=== PATIENT | female | born 1985 | race Native Hawaiian/Other Pacific Islander ===

== ENCOUNTER 2021-10-29 03:05 | Inpatient (IN) | payer OTHER ==
[~2021-10-29] VITALS: Ht 162.6 cm; Wt 47.6 kg
--- NOTE | ~2021-10-29 | EMS ---
[address] [address] EMS Patient Care Report Name: LAKEISHA PONCE Room #: 204-P ADM IN M.R.#: [id number] Admission: 10/29/21 Attend Phys: Suman Leigh MD Discharge: Date of : 85 Report #: [id number] THIS REPORT FOR: //name// Report Transmitted: 10/29/2021 07:53 EMS Care Summary [facility] MED-ACT Incident [id number] @ 10/29/2021 02:32 Incident Location [facility] [place] [address] Patient LAKEISHA PONCE Female, 36 Years 1985 Patient Address [address] [place] [address] Patient History Depression,Alcohol Abuse, Patient Medications Other, Pantoprazole, Hydroxyzine, Celexa, Amitriptyline, Chief Complaint Pt. took two days worth of her meds. Disposition Transported No Lights/[place] Dispatch Reason Overdose/Poisoning/Ingestion Transported To [facility] Narrative Arrived to find a 36 yr old female patient laying in the entry way of a sober living house on an ECG in the care of E31. According to the warehouse operator, she believes the patient took two days worth of her anti-depressants and consumed an unknown amount of alcohol. Possibly in her car before coming inside. [employer] stated they could smell alcohol on her breath. The senior manager quality assurance states the patient [facility] [address] [place] [address] EMS Patient Care Report Name: LAKEISHA PONCE Room #: 204-P ADM IN M.R.#: [id number] Admission: 10/29/21 Attend Phys: Suman Leigh MD Discharge: Date of : 85 Report #: [id number] has been going through an ugly divorce. It is unknown if anything happened tonight. She reports the patient has only been back at the "sober living house" for the past two weeks. Previously she was kicked out about six months ago because of drinking. Around that time was also the last time the patient overdosed. Patient denies any complaints and admits to drinking an unknown amount of vodka tonight. The warehouse operator states the patient's med are locked up and she only had access to two days worth. A: See assessment tab. Physical exam, vital signs, and patient placed on an ECG prior to our arrival. Patient was rolled onto the soft cot and carried out to the cot. Due to the presence of snow on the ground. Patient woke up once she was exposed to the cold air outside. Moved to ambulance. En route to [place]. Vital signs and ECG were monitored during transport. Patient's mental status improved. IV established. We contacted [place] on the med radio. Patient rested on the cot during transport. Patient had no additional changes to her condition during transport and was alert with stable vital signs upon arrival at [place]. Patient care was transferred to an ED RN in room 4 at [place]. Patient was able to self transfer from the cot to the hospital bed. Patient requested ambulance transport to [place]. Patient tested positive for COVID-19, 12 days ago. 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 [address] [place] [address] EMS Patient Care Report Name: LAKEISHA PONCE Room #: 204-P ADM IN M.R.#: [id number] Admission: 10/29/21 Attend Phys: Suman Leigh MD Discharge: Date of : 85 Report #: [id number] 02:30,Call Received 02:30,Psap Call 02:32,Dispatched 02:34,En Route 02:41,On Scene 02:45,At Patient 02:48,Surgical Mask on Patient,Response: Unchanged 02:53,BP: 110/73 M,PULSE: 95,RR: 16 R,SPO2: 99 Ox,ETCO2: ,BG: ,PAIN: 0,GCS: 14, 02:57,Depart Scene 02:58,IV Therapy - Saline Lock 10cc 18 ga Site: Forearm-Left,Response: UnchangedSucceeded, 03:01,BP: 99/65 M,PULSE: 94,RR: 16 R,SPO2: 96 Ox,ETCO2: ,BG: ,PAIN: 0,GCS: 14, 03:02,At Destination 03:27,Call Closed Disclaimer v1.1 Copyright 2021 [employer] This EMS Care Summary contains data elements from the applicable legal record (which may be displayed differently). It is designed to provide pertinent information for the following purposes: continuity of care, clinical quality, and state data reporting. The complete legal record is available to ED staff and administrators of the receiving hospital in [employer]'s Patient Tracker. All data is provided "as is."
--- NOTE | ~2021-10-29 | EMS ---
[facility] [address] [place] [address] EMS Patient Care Report Name: LAKEISHA PONCE Room #: REG MARIE Kessler#: [id number] Admission: 10/29/21 Attend Phys: Discharge: Date of : 85 Report #: [id number] THIS REPORT FOR: //name// Report Transmitted: 10/29/2021 03:37 EMS Care [facility] MED-ACT Incident [id number] @ 10/29/2021 02:32 Incident Location [facility] [place] [address] Patient LAKEISHA PONCE Female, 36 Years 1985 Patient Address [address] [place] [address] Patient History Depression,Alcohol Abuse, Patient Medications Other, Pantoprazole, Hydroxyzine, Celexa, Amitriptyline, Chief Complaint Pt. took two days worth of her meds. Disposition Transported No Lights/[place] Dispatch Reason Overdose/Poisoning/Ingestion Transported To [facility] Narrative Arrived to find a 36 yr old female patient laying in the entry way of a sober living house on an ECG in the care of E31. According to the house mother, she believes the patient took two days worth of her anti-depressants and consumed an unknown amount of alcohol. Possibly in her car before coming inside. [employer] stated they could smell alcohol on her breath. The manager activities states the patient [address] [address] EMS Patient Care Report Name: LAKEISHA PONCE Room #: REG [place]#: [id number] Admission: 10/29/21 Attend Phys: Discharge: Date of : 85 Report #: [id number] has been going through an ugly divorce. It is unknown if anything happened tonight. She reports the patient has only been back at the "sober living house" for the past two weeks. Previously she was kicked out about six months ago because of drinking. Around that time was also the last time the patient overdosed. Patient denies any complaints and admits to drinking an unknown amount of vodka tonight. The house mother states the patient's med are locked up and she only had access to two days worth. A: See assessment tab. Physical exam, vital signs, and patient placed on an ECG prior to our arrival. Patient was rolled onto the soft cot and carried out to the cot. Due to the presence of snow on the ground. Patient woke up once she was exposed to the cold air outside. Moved to ambulance. En route to [place]. Vital signs and ECG were monitored during transport. Patient's mental status improved. IV established. We contacted [place] on the med radio. Patient rested on the cot during transport. Patient had no additional changes to her condition during transport and was alert with stable vital signs upon arrival at [place]. Patient care was transferred to an ED RN in room 4 at [place]. Patient was able to self [facility] bed. Patient requested ambulance transport to [place]. Patient tested positive for COVID-19, 12 days ago. 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,BP: 114/70 M,PULSE: 98,RR: 16 R,SPO2: 98 Ox,ETCO2: ,B,PAIN: 0,GCS: 13, [place] [address] EMS Patient Care Report Name: LAKEISHA PONCE Room #: REG MARIE Kesslre#: [id number] Admission: 10/29/21 Attend Phys: Discharge: Date of : 85 Report #: [id number] 02:30,Call Received 02:30,Psap Call 02:32,Dispatched 02:34,En Route 02:41,On Scene 02:45,At Patient 02:48,Surgical Mask on Patient,Response: Unchanged 02:53,BP: 110/73 M,PULSE: 95,RR: 16 R,SPO2: 99 Ox,ETCO2: ,BG: ,PAIN: 0,GCS: 14, 02:57,Depart Scene 02:58,IV Therapy - Saline Lock 10cc 18 ga Site: Forearm-Left,Response: UnchangedSucceeded, 03:01,BP: 99/65 M,PULSE: 94,RR: 16 R,SPO2: 96 Ox,ETCO2: ,BG: ,PAIN: 0,GCS: 14, 03:02,At Destination 03:27,Call Closed Disclaimer v1.1 Copyright 2021 [employer] This EMS Care Summary contains data elements from the applicable legal record (which may be displayed differently). It is designed to provide pertinent information for the following purposes: continuity of care, clinical quality, and state data reporting. The complete legal record is available to ED staff and administrators of the receiving hospital in [employer]'s Patient Tracker. All data is provided "as is."
[2021-10-29 03:07] VITALS: BP 91/42
[2021-10-29 04:03] LABS: AMP/METHAMP Negative (Negative); BARBITURATES Negative (Negative); BENZODIAZEPINES Negative (Negative); COCAINE Negative (Negative); METHADONE Negative (Negative); OPIATES Negative (Negative); PCP Negative (Negative)
[2021-10-29] MEDS ORDERED: HYDROXYZINE HCL25 M2 PO (04:23)
[2021-10-29] MEDS ORDERED: REVIA 50 MG TAB50 M1 PO (04:23)
[2021-10-29] MEDS ORDERED: LEXAPRO 10 MG T10 MG PO (04:24)
[2021-10-29] MEDS ORDERED: AMITRIPTYLINE H25 M3 PO (04:24)
[2021-10-29 05:05] LABS: ANION GAP 15 mmol/L (7-16); BUN 6 mg/dL (7-18); CALCIUM 8.2 mg/dL (8.5-10.1); CHLORIDE 110 mmol/L (98-107); CO2 22 mmol/L (21-32); CREATININE 0.8 mg/dL (0.6-1.0); GLUCOSE 84 mg/dL (74-106); HEMATOCRIT 42.5 % (37.0-47.0); HEMOGLOBIN 14.5 gm/dL (12.0-15.0); MCH 31.3 pg (26.0-34.0); POTASSIUM 3.4 mmol/L (3.5-5.1); RBC 4.63 mil/uL (4.20-5.00); RDW 14.4 % (10.5-14.5); SODIUM 147 mmol/L (136-145); WBC 6.8 thou/uL (4.0-11.0)
[2021-10-29 05:12] LABS: SALICYLATE 5.3 mg/dL (2.8-20.0); SGOT 14 U/L (15-37); SGPT 18 U/L (14-59); TOTAL BILIRUBIN 0.2 mg/dL (0.2-1.0); TOTAL PROTEIN 6.9 g/dL (6.4-8.2)
[2021-10-29 06:25] VITALS: BP 129/88
--- NOTE | 2021-10-29 06:36 | NUR ---
NURSING NOTE: ADMISSION: PT ARRIVED TO UNIT AT 0620 TODAY. MOVES ALL EXTREMITIES AND CAN FOLLOW COMMANDS. PT ARRIVED VIA CART AND MANAGER ACTION. VERY DROWSY AND LETHARGIC UPON ARRIVAL. REFUSED TO ANSWER ADMIT QUESTIONS AT THIS TIME. WANTS TO "SLEEP". ALL VS AND ASSESSMENTS CHARTED. NO DISTRESS NOTED AT THIS TIME.
[2021-10-29 07:30] VITALS: BP 103/72
--- NOTE | 2021-10-29 08:00 | EKG ---
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1985 Requested By: Jt Campuzano Order Number: [id number] MD: Mj Gaines Measurements Intervals [place] Rate: 79 P: 87 MO: 155 QRS: 70 QRSD: 88 T: 74 QT: 416 QTc: 477 Interpretive Statements Sinus rhythm Probable left atrial enlargement Baseline wander in lead(s) V1,V2 No previous ECG available for comparison Electronically Signed On 10-29-2021 8:00:34 CENTRAL LAB TECHNICIAN by Mj Gaines [email or web address] <ELECTRONICALLY SIGNED> By: Mj Gaines MD, [facility] 10/29/21 [phone] Mj Gaines MD, FACC /EPI
[2021-10-29 11:25] VITALS: BP 92/67
--- NOTE | 2021-10-29 11:26 | NUR ---
PATIENT ADMITTED FOR Alcohol withdrawl and medication overdose. CHART REVIEWED AND DISCUSSED WITH CARE TEAM. CM MET WITH PT THIS DAY. PT RESTING WITH EYES SO CM SPEAK WITH NURSING STAFF. NURSING REPORTS NOT VERY CONVERSATIONAL. NO PRIMARY CONTACT DOCUMENTED AND PT RESTING AND UNABLE TO CONFIRM WITH PT. CM AWAITING PSYCH PHYSICIAN RECOMMENDATIONS FOR FURTHER DC PLANNING. CM FOLLOWING.
--- NOTE | 2021-10-29 11:42 | NUR ---
Pt is sleeping and not very conversational at this time. VS are stable and pt obeys commands but does not answer questions. Dr. Jones signed off on pt stating that she is medically stable. Awaiting psych eval and input for discharge planning. CM also consulted. CM attempted to speak with pt this morning but pt was sleeping very deeply. No complaints of pain. No current concerns. Will continue to monitor.
[2021-10-29 16:00] VITALS: BP 102/55
[2021-10-29] MEDS ORDERED: FOLIC ACID1 MG PO (16:43)
[2021-10-29] MEDS ORDERED: PRENATAL COMPL1 EACH PO (16:43)
[2021-10-29 17:04] VITALS: BP 92/67
--- NOTE | 2021-10-29 17:42 | NUR ---
Pt discharged back to [facility]. Pt left unit at 1730. [place] account services representative spoke with pt at length and determined that pt is safe to discharge today. Dr. Benítez was consulted and she signed off on pt discharge. Pt is A&0x4, VS stable and afebrile. She ate dinner before she left unit and was talking and visiting with the women from [facility] who came to pick her up. Discharge education, new medication and post discharge f/u appointment information was given to pt and pt stated understanding the information. No current concerns.
== END 2021-10-29 17:57 | disposition home or self-care (01) | DRG 918 ==
LOC: ER 03:05 → EDBD 03:05 → EROBS 05:23 → 2N 06:10
PROVIDERS: Emergency Medicine; ADMIT Internal Medicine; ATTEND Internal Medicine
DX: T43.592A Poisoning by other antipsychotics and neuroleptics, intentional self-harm, initial encounter (principal); E87.0 Hyperosmolality and hypernatremia; F10.129 Alcohol abuse with intoxication, unspecified; F41.9 Anxiety disorder, unspecified; Z20.822 Contact with and (suspected) exposure to COVID-19; E87.6 Hypokalemia; T43.012A Poisoning by tricyclic antidepressants, intentional self-harm, initial encounter; T43.222A Poisoning by selective serotonin reuptake inhibitors, intentional self-harm, initial encounter; Y92.89 Other specified places as the place of occurrence of the external cause; Z91.040 Latex allergy status; F32.A Depression, unspecified
CPT/HCPCS: 10081